=== PATIENT | male | born 1945 | race Caucasian/White ===

== ENCOUNTER 2022-01-03 23:17 | Inpatient (IN) | payer MEDICARE, MEDICAID ==
[~2022-01-03] VITALS: Ht 185.4 cm; Wt 78.5 kg
[2022-01-04 04:04] LABS: HEMATOCRIT. 39.3 % (42.0-52.0); HEMOGLOBIN. 12.7 g/dL (14.0-18.0); MEAN CORPUSCULAR HEMOGLOBIN 28.6 pg (28.0-32.0); MEAN CORPUSCULAR VOLUME 88.7 fL (80.0-94.0); MEAN PLATELET VOLUME 8.1 fl (7.4-10.4); PLATELET 278 x1000/uL (130-400); RED BLOOD CELL COUNT 4.43 mill/uL (4.7-6.1); RED CELL DISTRIBUTION WIDTH 20.2 % (11.6-14.6)
[2022-01-04 04:13] LABS: CHLORIDE 99 mEq/L (98-107)
[2022-01-04] MEDS ORDERED: CEFTRIAXONE 1 G PREMIX 50 ML IV ONE (04:30)
[2022-01-04 07:32] LABS: PLATELET ESTIMATE NORMAL
[2022-01-04 11:10] VITALS: BP 102/75
[2022-01-04] MEDS ORDERED: ACETAMINOPHEN 325MG TABLET PO PRN ×2 (11:15)
[2022-01-04] MEDS ORDERED: ONDANSETRON HCL 4MG/2ML INJ IV PRN (11:15)
[2022-01-04] MEDS ORDERED: DOCUSATE SODIUM 100MG CAPSULE PO PRN (11:15)
[2022-01-04] MEDS ORDERED: HYDROCODONE/ACETAMINOPHEN 5/325MG TABLET PO PRN (11:15)
[2022-01-04] MEDS ORDERED: IPRATROPIUM/ALBUTEROL 0.5-3(2.5)MG/3ML NEB HHN PRN (11:15)
[2022-01-04] MEDS ORDERED: LORAZEPAM 0.5MG TABLET PO PRN (11:15)
[2022-01-04] MEDS ORDERED: CLONIDINE 0.1MG TABLET PO PRN ×2 (11:15→17:30)
[2022-01-04] MEDS ORDERED: NALOXONE HCL 0.4MG/ML VIAL IV PRN (11:30)
[2022-01-04 12:00] VITALS: BP 102/75
[2022-01-04] MEDS ORDERED: VANCOMYCIN 1.25GM PMX (XELLIA) 250 ML IV NR (12:30)
[2022-01-04] MEDS: PIPERACILLIN/TAZOBACTAM 3.375 G in DEXTROSE 5% WATER 50 ML IV SCH ×2 (15:08→21:19)
[2022-01-04 16:00] VITALS: BP 163/101
[2022-01-04 16:32] VITALS: BP 102/75
[2022-01-04 18:11] LABS: HEPATITIS B SURFACE ANTIGEN NEGATIVE
[2022-01-04 20:00] VITALS: BP 147/99
[2022-01-05] VITALS: BP 158/97
[2022-01-05] MEDS ORDERED: VANCOMYCIN 750 MG in DEXT 5% WATER 250 ML IV SCH (02:00)
[2022-01-05 04:00] VITALS: BP 154/95
[2022-01-05] MEDS: PIPERACILLIN/TAZOBACTAM 3.375 G in DEXTROSE 5% WATER 50 ML IV SCH ×3 (05:00→21:13)
[2022-01-05 08:00] VITALS: BP 105/57
[2022-01-05] MEDS: RISPERIDONE 1MG TABLET PO SCH ×2 (09:09→21:16)
[2022-01-05 12:00] VITALS: BP 113/62
[2022-01-05] MEDS ORDERED: LIDOCAINE HCL 1% 20ML VIAL (Pyxis) INJ INFIL NR (12:30)
[2022-01-05] MEDS: VANCOMYCIN 750 MG in DEXT 5% WATER 250 ML IV SCH ×2 (13:11→21:14)
[2022-01-05 16:00] VITALS: BP 122/60
[2022-01-05 20:00] VITALS: BP 164/104
[2022-01-05] MEDS ORDERED: TEMAZEPAM 15MG CAPSULE PO PRN (21:00)
[2022-01-06 08:24] LABS: *AMPHETAMINES SCREEN URINE NEGATIVE (NEGATIVE); *BARBITURATES SCREEN URINE NEGATIVE (NEGATIVE); *BENZODIAZEPINES SCREEN URINE NEGATIVE (NEGATIVE); *COCAINE SCREEN URINE NEGATIVE (NEGATIVE); CANNABINOID URINE SCREEN NEGATIVE (NEGATIVE); METHADONE URINE SCREEN NEGATIVE (NEGATIVE); OPIATES URINE SCREEN NEGATIVE (NEGATIVE); PHENCYCLIDINE URINE SCREEN NEGATIVE (NEGATIVE)
[2022-01-06 08:34] LABS: EOSINOPHILS % 3.7 % (0.0-5.0); HEMATOCRIT. 36.8 % (42.0-52.0); HEMOGLOBIN. 11.9 g/dL (14.0-18.0); MEAN CORPUSCULAR HEMOGLOBIN 28.5 pg (28.0-32.0); MEAN CORPUSCULAR VOLUME 87.8 fL (80.0-94.0); MEAN PLATELET VOLUME 7.7 fl (7.4-10.4); MONOCYTES % 12.8 % (2.0-8.0); NEUTROPHILS % 59.5 % (40.0-76.0); PLATELET 239 x1000/uL (130-400); RED BLOOD CELL COUNT 4.19 mill/uL (4.7-6.1); RED CELL DISTRIBUTION WIDTH 20.7 % (11.6-14.6)
[2022-01-06 08:45] LABS: CHLORIDE 103 mEq/L (98-107)
[2022-01-06] MEDS: VANCOMYCIN 750 MG in DEXT 5% WATER 250 ML IV SCH (10:33)
[2022-01-06] MEDS: RISPERIDONE 1MG TABLET PO SCH ×2 (10:33→22:10)
[2022-01-06 16:00] VITALS: BP 156/97
[2022-01-07] VITALS: BP 175/107
[2022-01-07 04:00] VITALS: BP 111/53
[2022-01-07 08:00] VITALS: BP 177/113
[2022-01-07] MEDS: RISPERIDONE 1MG TABLET PO SCH (09:37)
[2022-01-07 12:00] VITALS: BP 159/86
[2022-01-07] MEDS ORDERED: AMLODIPINE 5MG TABLET PO SCH (13:30)
[2022-01-07] MEDS ORDERED: TEMA15CA PO (15:20)
[2022-01-07] MEDS ORDERED: RISP1 PO (15:20)
[2022-01-07] MEDS ORDERED: AMLO5TAB88 PO (15:20)
[2022-01-07 15:40] VITALS: BP 159/86
[2022-01-07 16:00] VITALS: BP 142/80
== END 2022-01-07 17:26 | disposition home or self-care (01) | DRG 571 ==
LOC: ER 23:17 → ENRESERV 01-04 07:28 → 6EST 01-04 10:27
PROVIDERS: ADMIT Internal Medicine; ATTEND Internal Medicine
PROC: 0JBP0ZZ Excision of Left Lower Leg Subcutaneous Tissue and Fascia, Open Approach (ICD-10-PCS; principal; 2022-01-05)
PROC: 0JBN0ZZ Excision of Right Lower Leg Subcutaneous Tissue and Fascia, Open Approach (ICD-10-PCS; 2022-01-05)
DX: L03.115 Cellulitis of right lower limb (principal); E44.1 Mild protein-calorie malnutrition; L97.818 Non-pressure chronic ulcer of other part of right lower leg with other specified severity; E87.1 Hypo-osmolality and hyponatremia; D64.9 Anemia, unspecified; F25.9 Schizoaffective disorder, unspecified; L03.116 Cellulitis of left lower limb; R74.01 Elevation of levels of liver transaminase levels; D72.825 Bandemia; Z79.899 Other long term (current) drug therapy; I11.9 Hypertensive heart disease without heart failure; J44.9 Chronic obstructive pulmonary disease, unspecified; Z68.22 Body mass index [BMI] 22.0-22.9, adult
CPT/HCPCS: 36415; 71045; 80048; 80053; 80202; 80305; 84145; 85025; 86705; 86709; 86803; 87340; 93005; 93923; 93970; 99285; J0696; J2543; J3370; J3490; J7030; J7060